=== PATIENT | male | born 1985 | race Caucasian/White ===

== ENCOUNTER 2018-02-04 08:14 | Day surgery (SDC) | payer OTHER ==
[~2018-02-04 08:14] MED LIST: Buffered Lidocaine 0.9% SYRIN* 5 ML/SYR SYRINGE INTRADERM ONE; Dexamethasone IV* 4 MG/ML 1 ML (4 MG) IV SLOW PU ONE; Famotidine IV* 10 MG/ML 2 ML (20 mg) IV ONE
[2018-02-04] MEDS ORDERED: ceFAZolin 2 GM PREMIX in ORs 2 GM/50 ML BAG IVPB ONE (08:26)
[2018-02-04] MEDS ORDERED: Famotidine IV* 10 MG/ML 2 ML (20 mg) ONE (08:26)
[2018-02-04] MEDS ORDERED: Dexamethasone IV* 4 MG/ML 1 ML (4 MG) ONE (08:26)
[2018-02-04] MEDS ORDERED: fentaNYL* 50 MCG/ML 5 ML VIAL (250 MCG VIAL) ONE (09:38)
[2018-02-04] MEDS ORDERED: Midazolam* 1 MG/ML 5 ML VIAL (5 MG) ONE (09:38)
[2018-02-04] MEDS ORDERED: Ondansetron INJ* 2 MG/ML VIAL ONE (09:43)
[2018-02-04] MEDS ORDERED: Ketorolac INJ* 30 MG/ML 1 ML VIAL ONE (09:43)
[2018-02-04] MEDS ORDERED: Lidocaine 2% PF * 5 ML VIAL ONE (09:43)
[2018-02-04] MEDS ORDERED: Propofol* 10 MG/ML 20 ML BTL IV PUSH ONE (09:43)
[2018-02-04] MEDS ORDERED: Ondansetron INJ* 2 MG/ML VIAL IV PRN (09:51)
[2018-02-04] MEDS ORDERED: oxyCODONE/Acetamin 5/325 MG* TAB PO PRN (09:51)
[2018-02-04] MEDS ORDERED: Naloxone* 0.4 MG/ML 1 ML VIAL IV PRN (09:51)
[2018-02-04] MEDS ORDERED: HYDROmorphone INJ* 0.5 MG/0.5 ML SYRINGE IV PRN (09:51)
[2018-02-04] MEDS ORDERED: DiMENhydriNATE IV* 50 MG/ML VIAL IV PUSH PRN (09:51)
[2018-02-04] MEDS ORDERED: ROPIVACAINE 5 MG/ML 30 ML BTL (0.5%) ONE (09:55)
[2018-02-04] MEDS ORDERED: Glycopyrrolate IV* 0.2 MG/ML 1 ML VIAL ONE (10:43)
[2018-02-04] MEDS ORDERED: fentaNYL* 50 MCG/ML 2 ML VIAL (100 MCG VIAL) ONE (11:56)
[2018-02-04] MEDS ORDERED: oxyCODONE/Acetamin 5/325 MG* TAB ONE ×2 (11:56→12:37)
[2018-02-04] MEDS: fentaNYL* 50 MCG/ML 2 ML VIAL (100 MCG VIAL) IV PRN ×2 (12:01→12:10)
[2018-02-04 12:33] VITALS: BP 165/103
--- NOTE | 2018-02-17 21:54 | OP ---
DATE OF OPERATION: 02/04/18 [facility] DATE OF : 85 SURGEON: Emmett Garcia MD CARE PROCESS MANAGER: ZAINAB Nuñez ANESTHESIOLOGIST: Dr. Ronquillo. ANESTHESIA: General. PRE-OP DIAGNOSIS: 1. Left thumb first metacarpal displaced shaft fracture. 2. Right fourth metacarpal neck fracture. POST-OP DIAGNOSIS: 1. Left thumb first metacarpal displaced shaft fracture. 2. Right fourth metacarpal neck fracture. OPERATIVE PROCEDURE: 1. Closed reduction percutaneous fixation of left first metacarpal proximal shaft fracture. 2. Closed treatment of right fourth metacarpal neck fracture. INDICATIONS: Osbaldo is an inmate who fractured the thumb, metacarpal bone, 13 days prior to the date of surgery. It was displaced. I talked to him about reducing it and pinning it; he had wanted to proceed. He understands the risks of pin tract infection and other complications. ESTIMATED BLOOD LOSS: 2 mL. COMPLICATIONS: None. FINDINGS: As expected. DESCRIPTION OF PROCEDURE: Osbaldo was seen in the preoperative holding area. The correct side, site, and procedure were identified. We came back to the operating room. The arm was prepped and draped in the usual fashion. A time- out was performed. I began by pulling in-line traction and reducing the fracture. The reduction was confirmed under mini C-arm fluoroscopy. I then introduced 1 wire from distal radial to proximal ulnar. I then placed a second wire from distal ulnar to proximal radial. Ultimately, the reduction was just a little off, so I packed both wires. I re-reduced it and then I re-advanced the first wire. I removed the distal ulnar wire. I then placed a second wire from proximal radial to distal ulnar going down into the carpus. Ultimately, this was holding the reduction very well. Everything was looking very nicely lined up. So, I bent and clipped the wires. The pins were dressed in standard fashion. A thumb spica splint was applied out to the tip of the thumb. The fourth metacarpal neck fracture on the right was in good alignment so this was treated closed in a cast. He was then woken up and taken to the recovery room in stable condition. [id number]/[facility] #: [id number] MTDD
== END 2018-02-04 13:12 | disposition home or self-care (01) ==
LOC: OREAST 08:14
PROVIDERS: ATTEND Orthopaedic Surgery Hand Surgery
DX: S62.242A Displaced fracture of shaft of first metacarpal bone, left hand, initial encounter for closed fracture (principal); S62.304A Unspecified fracture of fourth metacarpal bone, right hand, initial encounter for closed fracture; W23.0XXA Caught, crushed, jammed, or pinched between moving objects, initial encounter; Y93.B3 Activity, free weights; Y92.148 Other place in prison as the place of occurrence of the external cause
CPT/HCPCS: A9270-GY; C1776; J0690; J1100; J1885; J2250; J2405; J2704; J2795; J3010